=== PATIENT | female | born 1950 | race Caucasian/White ===

== ENCOUNTER → 2017-08-28 | Outpatient (CLI) | payer MEDICARE, OTHER ==
--- NOTE | 2017-08-28 13:10 | Diagnostic Imaging Report ---
History: Low back pain, bilateral leg pain. Comparison studies: None Technique: Sagittal, coronal and axial T2 , sagittal T1 and IR, axial spin density oblique. Intravenous contrast: None Findings: Number of lumbar vertebral bodies:5 Alignment: Normal lordosis.No scoliosis. Soft tissues: No T2 hyperintense inflammatory changes. Paraspinal muscles: No signal abnormalities. No atrophy. Lower thoracic cord:Normal in signal and morphology. The tip of the conus is at L1-L2. Cauda equina: No masses. No arachnoiditis. Vertebrae: Normal in height and signal intensity. No compression fractures, infection or neoplasm. Degenerative changes: Mild disc degeneration of the lower thoracic spine Modic type II changes at T10-T11 anteriorly. L1-L2: Disc degeneration with loss of T2 signal. Patent canal and foramina. L2-L3: Disc degeneration with loss of T2 signal. Patent canal and foramina. L3-L4: Disc degeneration with loss of T2 signal. Mild diffuse disc bulge, mild facet hypertrophy results in no significant canal stenosis or foraminal narrowing. L4-L5: Disc degeneration with loss of T2 signal. Diffuse disc bulge and small central area fissure and mild bilateral facet hypertrophy results in no significant canal stenosis or foraminal narrowing. L5-S1: Disc degeneration with loss of T2 signal. Mild diffuse disc bulge and mild facet hypertrophy results in no significant canal stenosis or foraminal narrowing. Additional findings: None IMPRESSION: Mild degenerative changes of the lumbar spine without significant canal stenosis or foraminal narrowing. Mild facet arthrosis at the lower lumbar spine. Signed by: DR Marciano Patel M.D. on 08/28/2017 1:06 PM
== END ==
LOC: MRI 10:01
PROVIDERS: ATTEND Family Medicine
DX: M54.16 Radiculopathy, lumbar region (principal)
CPT/HCPCS: 72148

== ENCOUNTER → 2017-11-16 | Outpatient (CLI) | payer MEDICARE, OTHER ==
--- NOTE | 2017-11-17 08:51 | Diagnostic Imaging Report ---
TECHNIQUE: Magnetic resonance imaging of the RIGHT KNEE was performed WITHOUT injected contrast. HISTORY: Pain, pain behind right knee, "run down my leg to my foot" COMPARISON: None available. FINDINGS: LIGAMENTS AND TENDONS: ACL: Prominent intrasubstance degeneration. PCL: Intact Collateral ligaments: Intact Iliotibial band: Unremarkable Popliteal tendon: Intact Extensor mechanism: Intact JOINT: Menisci: Medial: Complex tearing and attenuation of the posterior horn and adjacent body results in peripheral extrusion of the remaining body. Lateral: Intrasubstance delamination of the anterior horn, extending from the tibial foot print with the adjacent anterior cruciate ligament. Articular Cartilage: Medial Compartment: Full-thickness erosions of the weightbearing cartilage. Lateral Compartment: Superficial erosion and fissuring of the weightbearing cartilage. Patellofemoral Compartment: Diffuse intermediate to high-grade erosions. Joint Fluid: Small to moderate nonspecific joint effusion and synovitis. BONES: No focal or infiltrative bone marrow replacing abnormality. No acute fracture. Small medial compartment marginal osteophytes with adjacent mild reactive subchondral bone marrow edema.. SOFT TISSUES: Otherwise, unremarkable. IMPRESSION: 1. Medial compartment predominant tricompartmental degenerative changes, including degenerative tearing of the medial meniscus and degenerative delamination of the anterior horn of the lateral meniscus. 2. Reactive synovitis and associated small to moderate joint effusion. Signed by: Dr. Getachew Barnett D.O., M.M.M. on 11/17/2017 7:37 AM
== END ==
LOC: MRI 15:36
PROVIDERS: ATTEND Family Medicine
DX: M25.561 Pain in right knee (principal)

== ENCOUNTER → 2017-12-05 | Day surgery (SDC) | payer MEDICARE, OTHER ==
[2017-12-01 12:13] LABS: BASOPHILS % 0.5 % (0.0-1.0); EOSINOPHILS # (AUTO) 0.1 (0.0-0.4); EOSINOPHILS % 0.9 % (0.0-6.0); HEMATOCRIT 41.2 % (34.2-44.1); HEMOGLOBIN 13.6 g/dL (12.0-16.0); LYMPHOCYTES # (AUTO) 2.1 (1.0-3.2); MEAN CORPUSCULAR HEMOGLOBIN 29.4 pg (28-32); MEAN CORPUSCULAR VOLUME 89.2 fL (81-99); MONOCYTES # (AUTO) 0.4 (0.2-0.8); MONOCYTES % 6.9 % (4.4-11.3); NEUTROPHILS # (AUTO) 2.9 (2.1-6.9); NEUTROPHILS % 53.3 % (38.7-80.0); PLATELET COUNT 233 x10e3/uL (140-360); RED BLOOD COUNT 4.62 x10e6/uL (3.6-5.1); RED CELL DISTRIBUTION WIDTH 14.1 % (11.7-14.4)
--- NOTE | 2017-12-01 12:33 | Diagnostic Imaging Report ---
EXAMINATION: CHEST 2 VIEWS INDICATION: Preop COMPARISON: Chest radiograph 08/09/2016. FINDINGS: TUBES and LINES: None. LUNGS: Lungs are well inflated. Lungs are clear. There is no evidence of pneumonia or pulmonary edema. PLEURA: No pleural effusion or pneumothorax. HEART AND MEDIASTINUM: The cardiomediastinal silhouette is unremarkable. There are atherosclerotic calcifications within the aorta. BONES AND SOFT TISSUES: No acute osseous lesion. Soft tissues are unremarkable. UPPER ABDOMEN: No free air under the diaphragm. IMPRESSION: No acute thoracic abnormality. Signed by: Dr. Sudha Bowen MD on 12/01/2017 12:30 PM
[2017-12-01 12:44] LABS: ANION GAP 15.2 mmol/L (8-16); BLOOD UREA NITROGEN 24 mg/dL (7-26); BUN/CREATININE RATIO 30 (6-25); CARBON DIOXIDE 27 mmol/L (22-29); CHLORIDE 99 mmol/L (98-107); EST GLOMERULAR FILTRATION RATE > 60 ML/MIN (60-); GLUCOSE 91 mg/dL (74-118); POTASSIUM 3.2 mmol/L (3.5-5.1); SODIUM 138 mmol/L (136-145)
[~2017-12-05] MED LIST: AMLODIPINE BESY10 MG PO; CEFAZOLIN SOD 1 GM VIAL ONE; CRESTOR10 MG PO; DEXAMETHASONE SOD PHOS INJ 4 MG/ML VIAL ONE; DOXAZOSIN MESYLA2 MG PO; FENTANYL CITRATE/PF 100MCG/2 ML INJ ONE; KETOROLAC TROMETHAMINE 30 MG/ML VIAL ONE; LEVOTHYROXINE112 MCG PO; LIDOCAINE HCL 2% LOCAL INJ 5 ML SDV VIAL INJ ONE; LOSARTAN-HCTZ1 EAC1 PO; MIDAZOLAM HCL 2 MG/2 ML VIAL ONE; MIRAPEX0.25 MG PO; MORPHINE SULFATE 2 MG/ML SYR ONE; ONDANSETRON HCL INJ 2 MG/ML VIAL ONE; PHENTERMINE HCL15 MG PO; PROPOFOL IV EMULSION 10 MG/ML 20 ML VIAL ONE; SEVOFLURANE INHAL SOLN 250 ML PEN BTL ONE; VENLAFAXINE HCL75 MG PO
[2017-12-05 09:36] LABS: ANION GAP 14.4 mmol/L (8-16); BLOOD UREA NITROGEN 14 mg/dL (7-26); BUN/CREATININE RATIO 18 (6-25); CALCIUM 10.8 mg/dL (8.4-10.2); CARBON DIOXIDE 26 mmol/L (22-29); CHLORIDE 102 mmol/L (98-107); CREATININE, SERUM 0.76 mg/dL (0.57-1.11); EST GLOMERULAR FILTRATION RATE > 60 ML/MIN (60-); GLUCOSE 104 mg/dL (74-118); POTASSIUM 3.4 mmol/L (3.5-5.1); SODIUM 139 mmol/L (136-145)
--- NOTE | 2017-12-05 12:37 | Operative Report ---
DATE OF PROCEDURE: December 05, 2017 RAILWAY ENGINEER: Robin Rae PA-C The patient was brought to the operating room for induction of anesthesia. Throughout this case, my PA's assistance was necessary for retraction of soft tissue and positioning of the extremity. This allows for efficient and technically successful execution of the operation and is considered medically necessary. PREOPERATIVE DIAGNOSIS: Right knee degenerative medial meniscal tear. POSTOPERATIVE DIAGNOSES: Right knee degenerative medial meniscal tear plus lateral meniscal tear and chondroplasty of the trochlear groove and medial femoral condyle. PROCEDURE: Right knee arthroscopy, partial medial meniscectomy, partial lateral meniscectomy, chondroplasty of the trochlear groove and medial femoral condyle. INDICATIONS: The patient is a 67-year-old lady who has mechanical symptoms in her right knee. She has underlying arthritis. The findings and options have been extensively discussed. The patient states she is not ready to proceed with a knee replacement. She would like to proceed with arthroscopy. I have stressed the importance of realistic expectations with this type of procedure with underlying arthritis. She states she understands and wishes to proceed. DESCRIPTION OF PROCEDURE: The patient was brought to the operating room and placed under general anesthetic. Her right lower extremity was prepped and draped in a sterile manner. A well-padded tourniquet was inflated to 300 mmHg. A preoperative time out was performed. Standard arthroscopy portals were established. The knee was insufflated with sterile saline and systematically inspected. As expected, there was significant synovitis in the suprapatellar pouch. There was grade-3 chondromalacia of the patellofemoral groove. This was debrided back to a stable margin using a mechanical shaver. The medial compartment was inspected and probed. There was a degenerative tear of the posterior horn of the medial meniscus. There were grade-2 to grade-3 changes of chondromalacia in the medial femoral condyle. Both of these areas were gently debrided using a mechanical shaver. Before and after photographs were taken. The large posterior horn tear of the medial meniscus was debrided back to a stable margin. The cruciate ligaments were intact. The lateral compartment was inspected. There was fairly extensive fraying of the free edge of the lateral meniscus. This was debrided back to a stable margin using a mechanical shaver. The gutters were inspected. There were noted to be medial osteophytes. The knee was thoroughly further irrigated. The arthroscopic instruments were removed. The portal incisions were closed with nylon stitches. A sterile bandage was applied. She was extubated and transported to the recovery room in stable condition. Job#: [id number]
[2017-12-05 12:54] VITALS: BP 136/79
== END | disposition home or self-care (01) ==
LOC: OR 08:25
PROVIDERS: ATTEND Specialist
DX: S83.231A Complex tear of medial meniscus, current injury, right knee, initial encounter (principal); S83.281A Other tear of lateral meniscus, current injury, right knee, initial encounter; M94.261 Chondromalacia, right knee; M65.861 Other synovitis and tenosynovitis, right lower leg; I10 Essential (primary) hypertension; E03.9 Hypothyroidism, unspecified; G47.33 Obstructive sleep apnea (adult) (pediatric); E78.5 Hyperlipidemia, unspecified; X58.XXXA Exposure to other specified factors, initial encounter; Z01.810 Encounter for preprocedural cardiovascular examination; Z01.812 Encounter for preprocedural laboratory examination; Z01.818 Encounter for other preprocedural examination; Z68.39 Body mass index [BMI] 39.0-39.9, adult
CPT/HCPCS: 29880; 36415 ×2; 71046; 80048 ×2; 85025; 93005; J0690; J1100; J1885; J2001; J2250; J2270; J2405

== ENCOUNTER 2018-03-14 14:49 | Emergency (ER) | payer MEDICARE, OTHER ==
[~2018-03-14] VITALS: Ht 160 cm; Wt 85.7 kg
[~2018-03-14 14:49] MED LIST changes: -CEFAZOLIN SOD 1 GM VIAL ONE; -DEXAMETHASONE SOD PHOS INJ 4 MG/ML VIAL ONE; -FENTANYL CITRATE/PF 100MCG/2 ML INJ ONE; -KETOROLAC TROMETHAMINE 30 MG/ML VIAL ONE; -LIDOCAINE HCL 2% LOCAL INJ 5 ML SDV VIAL INJ ONE; -MIDAZOLAM HCL 2 MG/2 ML VIAL ONE; -MORPHINE SULFATE 2 MG/ML SYR ONE; -ONDANSETRON HCL INJ 2 MG/ML VIAL ONE; -PROPOFOL IV EMULSION 10 MG/ML 20 ML VIAL ONE; -SEVOFLURANE INHAL SOLN 250 ML PEN BTL ONE
--- NOTE | 2018-03-14 16:16 | Diagnostic Imaging Report ---
Exam: Left wrist Series. History: Injury to left wrist, status post fall yesterday Comparison: None. Findings: 3 views of the left wrist. There is mildly decreased bone mineralization. Acute, mildly displaced fracture through the neck of the scaphoid bone. Other bony structures are intact, without acute, displaced fracture. The ulnar styloid process is not visualized, however, no bony fragments are identified. Carpal bones remain aligned with the radius. Mild degenerative changes in the radiocarpal joint. No abnormal soft tissue calcification or mass. Mild soft tissue swelling tissue swelling around the wrist. Impression: 1. Acute, mildly displaced fracture through the neck of the scaphoid bone. Signed by: Dr. Aubrey Cronin M.D. on 03/14/2018 4:13 PM
== END 2018-03-14 16:47 | disposition home or self-care (01) ==
LOC: FSED 14:49
DX: S62.022A Displaced fracture of middle third of navicular [scaphoid] bone of left wrist, initial encounter for closed fracture (principal); W19.XXXA Unspecified fall, initial encounter; Y92.009 Unspecified place in unspecified non-institutional (private) residence as the place of occurrence of the external cause; I10 Essential (primary) hypertension; E03.9 Hypothyroidism, unspecified; E78.5 Hyperlipidemia, unspecified
CPT/HCPCS: 99283

== ENCOUNTER 2018-10-31 08:48 | Emergency (ER) | payer MEDICARE, OTHER ==
[~2018-10-31] VITALS: Ht 160 cm; Wt 99.8 kg
--- OUTSIDE RECORDS SUMMARY | 2018-10-31 08:51 | XMS REPORT | Encounter Summary ---
Author Organization Unknown Address [address] [place] [address] Phone [phone] Reason for Visit Medical Complaint Instructions 1. Upper respiratory infection rapid flu (A+B) upper respiratory infection (cold): care instructions benzonatate 200 mg capsule fluticasone propionate 50 mcg/actuation nasal spray,suspension 2. Sore throat symptom rapid strep group A, throat sore throat: care instructions Lidocaine Viscous 2 % mucosal solution 3. History of hypertension high blood pressure: care instructions 4. Body mass index 30+ - obesity body mass index: care instructions learning about healthy weight 5. Immunization advised shingles vaccine: what you need to know pneumococcal conjugate vaccine (pcv13): what you need to know Discussion Note: None recorded. Plan of Care Patient Instructions An upper respiratory infection, or URI, is an infection of the nose, sinuses, or throat. URIs are spread by coughs, sneezes, and direct contact. The common cold is the most frequent kind of URI. The flu and sinus infections are other kinds of URIs. Almost all URIs are caused by viruses. Antibiotics won't cure them. But you can treat most infections with home care. This may include drinking lots of fluids and taking ibqu-wry-ynedlnh pain medicine. You will probably feel better in 4 to 10 days. The doctor has checked you carefully, but problems can develop later. If you notice any problems or new symptoms, get medical treatment right away. Follow-up care is a maria part of your treatment and safety. Be sure to make and go to all appointments, and call your doctor if you are having problems. It's also a good idea to know your test results and keep a list of the medicines you take. How can you care for yourself at home? To prevent dehydration, drink plenty of fluids, enough so that your urine is light yellow or clear like water. Choose water and other caffeine-free clear liquids until you feel better. If you have kidney, heart, or liver disease and have to limit fluids, talk with your doctor before you increase the amount of fluids you drink. Take an kbon-kzx-iiuqpsv pain medicine, such as acetaminophen (Tylenol), ibuprofen (Advil, Motrin), or naproxen (Aleve). Read and follow all instructions on the label. Before you use cough and cold medicines, check the label. These medicines may not be safe for young children or for people with certain health problems. Be careful when taking tduf-aou-ypabhpb cold or flu medicines and Tylenol at the same time. Many of these medicines have acetaminophen, which is Tylenol. Read the labels to make sure that you are not taking more than the recommended dose. Too much acetaminophen (Tylenol) can be harmful. Get plenty of rest. Do not smoke or allow others to smoke around you. If you need help quitting, talk to your doctor about stop-smoking programs and medicines. These can increase your chances of quitting for good. When should you call for help? Call 911 anytime you think you may need emergency care. For example, call if: You have severe trouble breathing. Call your doctor now or seek immediate medical care if: You seem to be getting much sicker. You have new or worse trouble breathing. You have a new or higher fever. You have a new rash. Watch closely for changes in your health, and be sure to contact your doctor if: You have a new symptom, such as a sore throat, an earache, or sinus pain. You cough more deeply or more often, especially if you notice more mucus or a change in the color of your mucus. You do not get better as expected. Reminders Provider Appointments None recorded. Lab Rapid Flu (A+B) 10/06/2018 [facility] Rapid Strep Group a, Throat 10/06/2018 [facility] Referral None recorded. Procedures None recorded. Surgeries None recorded. Imaging None recorded. Medications Name Start Date alendronate 70 mg tablet alprazolam 0.25 mg tablet amlodipine 5 mg tablet Avapro benzonatate 200 mg capsule Take 1 capsule 3 times a day by oral route as needed for cough for 10 days. cephalexin 500 mg capsule citalopram clonazepam 0.5 mg tablet clotrimazole-betamethasone 1 %-0.05 % topical cream doxazosin 4 mg tablet fenofibrate 160 mg tablet fluticasone propionate 50 mcg/actuation nasal spray,suspension [place] 1 spray every day by intranasal route. ibuprofen 800 mg tablet TK 1 T PO Q 8 H WC levothyroxine levothyroxine 100 mcg tablet TK 1 T PO QD IN THE MORNING OES levothyroxine 112 mcg tablet levothyroxine 125 mcg tablet TK 1 T PO QAM OES Lidocaine Viscous 2 % mucosal solution Take 15 mL every 3 hours by oral route. losartan 100 mg-hydrochlorothiazide 25 mg tablet phentermine 30 mg capsule TK 1 C PO QD pramipexole 0.125 mg tablet venlafaxine ER 37.5 mg capsule,extended release 24 hr Medications Administered None recorded. Vitals Height Weight BMI Blood Pressure 5 ft 3 in 197 lbs 34.9 kg/m2 (1) 130/80 mm[Hg] (2) 136/82 mm[Hg] Lab Results Date Name Specimen Result Interpretation Description Value Range Status Address Rapid Strep Group a, Throat Result negative [facility]: [address] [place] [address] Swab Location Left and Right tonsillar pillars [facility]: [address] [place] [address] Rapid Flu (A+B) Influenza a negative [facility]: [address] [place] [address] Influenza B negative [facility]: [address] [place] [address] Allergies Code Code System Name Reaction Severity Status Onset NKDA Problems Name Status Onset Date Source Hypothyroidism Active 10/06/2018 Hyperlipidemia Active 10/06/2018 Hypertensive Disorder Active 10/06/2018 Procedures Date Name Performed by Delivery Information not available Vaccine List Vaccine Type Tdap 02/18/2016 Social History Smoking Status Never Smoker Past Encounters 10/06/2018 Upper Respiratory Infection; Sore Throat Symptom; History of Hypertension; Body Mass Index 30+ - Obesity; Immunization Advised [facility]: [address] [place] [address], Ph. History of Present Illness [id number]-Scbawpu Reported By: Patient HPI: Location: head/sinuses, throat, chest. Quality: productive cough, sore throat, nasal/sinus congestion. Duration: 2days. Severity: moderate. Context: no sick contacts, non-smoker, foreign travel. Associated Symptoms: no sputum production, no shortness of breath, no wheezing, no change in number of pillows needed to sleep at night, no sweats, no significant weight gain, no significant weight loss, no vomiting, no diarrhea, no rash, no nausea, no fever, no muscle aches, no headache, morning cough, sore throat; nasal congestion Review of Systems:ROS as noted in the HPI Review of Systems Basic Reported By: Patient Physical Exam Adult Basic, Adult Female Complete Reported By: Patient Constitutional: General Appearance: obese. Level of Distress: NAD. Ambulation: ambulating normally Psychiatric: Mental Status: active and alert. Orientation: to time, to place, to person Cos-Txay-Gfauf-Throat: Ears: no lesions on external ear, no outer ear tenderness, EACs clear, TMs clear. Hearing: no hearing loss. Nose: no lesions on external nose, nares patent, no septal deviation, nasal passages clear, no sinus tenderness, post nasal drip. Lips, Teeth, and Gums: no mouth or lip ulcers, no bleeding gums, normal dentition. Oropharynx: moist mucous membranes, no erythema, no exudates, tonsils not enlarged Lungs: Respiratory effort: no dyspnea, no tachypnea, no use of accessory muscles, no intercostal retractions. Auscultation: breath sounds normal Cardiovascular: Heart Auscultation: RRR, no murmurs
--- OUTSIDE RECORDS SUMMARY | 2018-10-31 08:51 | XMS REPORT | Continuity of Care Document ---
Author Author [facility] Address Unknown Phone Unavailable Care Team Providers Care Papeterie Table Assembler Name Role Phone Grows Up Information Exchange Unavailable Unavailable Problems Problem Status Onset Date Classification Date Reported Comments Source Immunization advised 10/06/2018 Diagnosis 10/06/2018 [facility] Body mass index 30+ - obesity 10/06/2018 Diagnosis 10/06/2018 [facility] History of hypertension 10/06/2018 Diagnosis 10/06/2018 [facility] Sore throat symptom 10/06/2018 Diagnosis 10/06/2018 [facility] Upper respiratory infection 10/06/2018 Diagnosis 10/06/2018 [facility] Hypothyroidism 10/06/2018 Problem 10/06/2018 [facility] Hyperlipidemia 10/06/2018 Problem 10/06/2018 [facility] Hypertensive Disorder 10/06/2018 Problem 10/06/2018 [facility] Medications Medication Details Route Status Patient Instructions Ordering Provider Order Date Source Alendronic acid 70 MG Oral Tablet alendronate 70 mg tablet Active [facility] Alprazolam 0.25 MG Oral Tablet alprazolam 0.25 mg tablet Active [facility] Amlodipine 5 MG Oral Tablet amlodipine 5 mg tablet Active [facility] Avapro Avapro Active [facility] benzonatate 200 MG Oral Capsule benzonatate 200 mg capsule Take 1 capsule 3 times a day by oral route as needed for cough for 10 days. Active [facility] Cephalexin 500 MG Oral Capsule cephalexin 500 mg capsule Active [facility] Celexa citalopram Active [facility] Clonazepam 0.5 MG Oral Tablet clonazepam 0.5 mg tablet Active [facility] Betamethasone 0.5 MG/ML / Clotrimazole 10 MG/ML Topical Cream clotrimazole-betamethasone 1 %-0.05 % topical cream Active [facility] Doxazosin 4 MG Oral Tablet doxazosin 4 mg tablet Active [facility] Fenofibrate 160 MG Oral Tablet fenofibrate 160 mg tablet Active [facility] Fluticasone propionate 0.05 MG/ACTUAT Metered Dose Nasal [place] fluticasone propionate 50 mcg/actuation nasal spray,suspension [place] 1 spray every day by intranasal route. Active [facility] Ibuprofen 800 MG Oral Tablet ibuprofen 800 mg tablet TK 1 T PO Q 8 H WC Active [facility] levothyroxine levothyroxine Active [facility] Levothyroxine Sodium 0.1 MG Oral Tablet levothyroxine 100 mcg tablet TK 1 T PO QD IN THE MORNING OES Active [facility] Levothyroxine Sodium 0.112 MG Oral Tablet levothyroxine 112 mcg tablet Active [facility] Levothyroxine Sodium 0.125 MG Oral Tablet levothyroxine 125 mcg tablet TK 1 T PO QAM OES Active [facility] Lidocaine Hydrochloride 20 MG/ML Mucous Membrane Topical Solution Lidocaine Viscous 2 % mucosal solution Take 15 mL every 3 hours by oral route. Active [facility] Hydrochlorothiazide 25 MG / Losartan Potassium 100 MG Oral Tablet losartan 100 mg-hydrochlorothiazide 25 mg tablet Active [facility] Phentermine Hydrochloride 30 MG Oral Capsule phentermine 30 mg capsule TK 1 C PO QD Active [facility] Pramipexole dihydrochloride 0.125 MG Oral Tablet pramipexole 0.125 mg tablet Active [facility] 24 HR venlafaxine 37.5 MG Extended Release Oral Capsule venlafaxine ER 37.5 mg capsule,extended release 24 hr Active [facility] Amlodipine Besylate 10 Mg Tablet Bedtime Active [facility] Doxazosin Mesylate 2 Mg Tablet Daily Active [facility] Levothyroxine Sodium 112 Mcg Tablet Bedtime Active [facility] Losartan/Hydrochlorothiazide (Losartan-Hctz 100-25 Mg Tab) 1 Each Tablet Bedtime Active [facility] Phentermine Hcl 15 Mg Capsule Daily Active [facility] Pramipexole Di-Hcl (Mirapex) 0.25 Mg Tablet Daily Active [facility] Rosuvastatin Calcium (Crestor) 10 Mg Tab Daily Active THERAPEUTICALLY SUBSTITUTED WITH SIMVASTATIN 40MG [facility] Venlafaxine Hcl 75 Mg Tab Twice A Day Active [facility] Allergies, Adverse Reactions, Alerts No Known Medication Allergies Immunizations Immunization Date Given Site Status Last Updated Comments Source Tdap 02/18/2016 completed [facility] Results Order Name Results Value Reference Range Date Interpretation Comments Source RESULT negative 10/06/2018 [facility] SWAB LOCATION Left and Right tonsillar pillars 10/06/2018 [facility] Influenza A negative 10/06/2018 [facility] Influenza B negative 10/06/2018 [facility] Serum or plasma sodium measurement (moles/volume) 139 136 - 145 12/05/2017 [facility] Serum or plasma potassium measurement (moles/volume) 3.4 3.5 - 5.1 12/05/2017 [facility] Serum or plasma chloride measurement (moles/volume) 102 98 - 107 12/05/2017 [facility] Serum or plasma carbon dioxide, total measurement (moles/volume) 26 22 - 29 12/05/2017 [facility] Serum or plasma anion gap 14.4 8 - 16 12/05/2017 [facility] Serum or plasma urea nitrogen measurement (mass/volume) 14 7 - 26 12/05/2017 [facility] Serum or plasma creatinine measurement (mass/volume) 0.76 0.57 - 1.11 12/05/2017 [facility] Serum or plasma urea nitrogen/creatinine mass ratio 18 6 - 25 12/05/2017 [facility] Estimated glomerular filtration rate (GFR) determination > 60 60 12/05/2017 [facility] Glucose measurement 104 74 - 118 12/05/2017 [facility] Serum or plasma calcium measurement (mass/volume) 10.8 8.4 - 10.2 12/05/2017 [facility] Blood leukocytes automated count (number/volume) 5.52 4.8 - 10.8 12/01/2017 [facility] Blood erythrocytes automated count (number/volume) 4.62 3.6 - 5.1 12/01/2017 [facility] Blood hemoglobin measurement (moles/volume) 13.6 12.0 - 16.0 12/01/2017 [facility] Automated blood hematocrit (volume fraction) 41.2 34.2 - 44.1 12/01/2017 [facility] Automated erythrocyte mean corpuscular volume 89.2 81 - 99 12/01/2017 [facility] Automated erythrocyte mean corpuscular hemoglobin (mass per erythrocyte) 29.4 28 - 32 12/01/2017 [facility] Automated erythrocyte mean corpuscular hemoglobin concentration measurement (mass/volume) 33.0 31 - 35 12/01/2017 [facility] RDW BldCo-Rto 14.1 11.7 - 14.4 12/01/2017 [facility] Automated blood platelet count (count/volume) 233 140 - 360 12/01/2017 [facility] Automated blood segmented neutrophil count as percentage of total leukocytes 53.3 38.7 - 80.0 12/01/2017 [facility] Automated blood lymphocyte count as percentage ot total leukocytes 38.0 18.0 - 39.1 12/01/2017 [facility] Automated blood monocyte count as percentage of total leukocytes 6.9 4.4 - 11.3 12/01/2017 [facility] Automated blood eosinophil count as percentage of total leukocytes 0.9 0.0 - 6.0 12/01/2017 [facility] Automated blood basophil count as percentage of total leukocytes 0.5 0.0 - 1.0 12/01/2017 [facility] IM GRANULOCYTES % 0.4 0.0 - 1.0 12/01/2017 [facility] Automated blood neutrophil count 2.9 2.1 - 6.9 12/01/2017 [facility] Blood lymphocytes count (number/volume) 2.1 1.0 - 3.2 12/01/2017 [facility] Blood monocytes automated count (number/volume) 0.4 0.2 - 0.8 12/01/2017 [facility] Automated blood eosinophil count 0.1 0.0 - 0.4 12/01/2017 [facility] Automated blood basophil count (count/volume) 0.0 0.0 - 0.1 12/01/2017 [facility] Absolute Immature Granulocyte (auto 0.02 0 - 0.1 12/01/2017 [facility] Pathology Reports No Data Provided for This Section Diagnostic Reports No Data Provided for This Section Consultation Notes No Data Provided for This Section Discharge Summaries No Data Provided for This Section History and Physicals No Data Provided for This Section Vital Signs Vital Sign Value Date Comments Source Diastolic (mm Hg) 82 10/06/2018 [facility] Height 63 10/06/2018 [facility] Systolic (mm Hg) 136 10/06/2018 [facility] Weight 197 10/06/2018 [facility] Encounters Location Location Details Encounter Type Encounter Number Reason For Visit Attending Provider ADM Date DC Date Status Source Registered Clinic [id number] RHONA SILVA MD 08/28/2017 [facility] Registered Clinic [id number] RHONA SILVA MD 11/16/2017 [facility] Registered Surgical Day Care [id number] ANA ONTIVEROS MD 12/05/2017 [facility] Departed Emergency Room [id number] JENNIFFER NEWTON MD 03/14/2018 03/14/2018 [facility] [place] - [facility] - [id number] HEIKE ArcherP-C: [address] [place] [address], Ph. [id number] Arian Borgeswe 10/06/2018 [facility] [place] [facility] [id number] [address] [place] [address], Ph. [id number] Arian Borgeswe 10/06/2018 [facility] Procedures Procedure Code Date Perfomer Comments Source KNEE ARTHROSCOPY/SURGERY [id number] 12/05/2017 [place] [facility] X-ray of chest, two views [id number] 12/01/2017 [place] [facility] MRI jnt of lwr extre w/o dye [id number] 11/16/2017 [facility] Magnetic resonance imaging of lumbar spine without contrast [id number] 08/28/2017 [facility] Delivery [id number] [facility] Assessment and Plan No Data Provided for This Section Plan of Care Plan of Care Date Source Discharge Date 03/14/18 4:47pm Disposition HOME, SELF-CARE Condition at Discharge Stable Instructions/Education Provided Fractures Forms Provided Work/School Excuse Prescriptions See Medication Section Referrals ANA ONTIVEROS MD Order Date: [facility] Address: [address] [place] [address] [address] [place] [address] Additional Instructions/Education Take medication as prescribed. -Tylenol #3 by mouth every 6 hours as needed for pain Qty#[address] while taking medication. Follow up with Dr. Ontiveros (Ortho) as soon as possible. Return to the ER if symptoms worsen or new symptoms develop. 03/14/2018 [facility] Social History Social History Date Source Smoking Status Start Date Stop Date Never Smoker 03/14/2018 [facility] Smoking Status Never Smoker 07/24/2010 [facility] Family History No Data Provided for This Section Advance Directives Order Name Results Value Date Source Advance Directives Advance Directives Directive Response Recorded Date/Time Does the patient have an advance directive? No 04/15/09 10:59am If yes, is advance directive on file with [facility]? No 04/15/09 10:59am If not on file with [facility] will patient provide a copy? No 08/09/16 4:14pm Do you have a Directive to Physician? No 03/14/18 3:41pm Do you have a Medical Power of Podiatrist Orthopedic? No 03/14/18 3:41pm Do you have an out of hospital Do Not Resuscitate Order? No 03/14/18 3:41pm Do you have any special needs we should be aware of? No 03/14/18 3:41pm Do you have a support person here with you today? Yes 03/14/18 3:41pm Did patient receive Notice of Privacy Practices? Yes 03/14/18 3:41pm Did patient receive patient rights and responsibilities? Yes 03/14/18 3:41pm 03/14/2018 [facility] Functional Status No Data Provided for This Section
--- OUTSIDE RECORDS SUMMARY | 2018-10-31 08:51 | XMS REPORT | Encounter Summary ---
Author Organization Unknown Address [address] [place] [address] Phone [phone] Reason for Visit Medical Complaint Instructions 1. [...] index: care instructions learning about healthy weight Discussion Note: None recorded. Plan of Care [...] include drinking lots of fluids and taking nvja-tfy-ormpliz pain medicine. You will probably feel better [...] amount of fluids you drink. Take an tjjd-crk-ezcsxpr pain medicine, such as acetaminophen (Tylenol), ibuprofen (Advil, Motrin), or naproxen (Aleve). Read and follow all instructions on the label. Before you use cough and cold medicines, check the label. These medicines may not be safe for young children or for people with certain health problems. Be careful when taking crmi-qdw-wvyjoak cold or flu medicines and Tylenol at [...] tablet fluticasone propionate 50 mcg/actuation nasal spray,suspension [place] 1 spray every day by intranasal route. [...] Group a, Throat Result negative [facility]: [address] [place] [address] Swab Location Left and Right tonsillar pillars [facility]: [address] [place] [address] Rapid Flu (A+B) Influenza a negative [facility]: [address] [place] [address] Influenza B negative [facility]: [address] [place] [address] Allergies Code Code System Name Reaction Severity [...] of Hypertension; Body Mass Index 30+ - Obesity Arian Beth [facility]: [address] [place] [address], Ph. History of Present Illness Diagc-Iychlxxmkd-Scxyjqw Reported By: Patient HPI: Location: head/sinuses, throat, [...] Orientation: to time, to place, to person Cfb-Sxep-Eqbtj-Throat: Ears: no lesions on external ear, no [...]
[2018-10-31] MEDS ORDERED: LIVALO2 MG PO (09:03)
[2018-10-31] MEDS ORDERED: ALENDRONATE SOD70 MG PO (09:03)
[2018-10-31] MEDS ORDERED: FENOPROFEN CAL600 MG PO (09:03)
[2018-10-31] MEDS ORDERED: DEXAMETHASONE SOD PHOS 10 MG/1 ML VIAL IM ONE (09:15)
[2018-10-31] MEDS ORDERED: ALBUTEROL/IPRATROPIUM 3 ML NEB ONE (09:15)
[2018-10-31] MEDS ORDERED: DEXAMETHASONE 10MG/ML PF INJ ONE (09:15)
[2018-10-31] MEDS ORDERED: ALBUTEROL/IPRATROPIUM 3 ML NEB NEB ONE (09:15)
--- NOTE | 2018-10-31 09:27 | Diagnostic Imaging Report ---
EXAMINATION: CXR 2 VIEW - HOPD INDICATION: Cough COMPARISON: None FINDINGS: LINES/TUBES:None LUNGS:The lungs are well-inflated. No focal consolidation or pulmonary edema. PLEURA:No pleural effusion or pneumothorax. MEDIASTINUM:The cardiomediastinal silhouette appears normal in size and shape. Atherosclerotic calcifications of the thoracic aorta. BONES/SOFT TISSUES:No acute osseous injury. ABDOMEN:No free air under the diaphragm. IMPRESSION: No focal pneumonia or pulmonary edema. Signed by: Alysia Urbano MD on 10/31/2018 9:24 AM
== END 2018-10-31 09:48 | disposition home or self-care (01) ==
LOC: FSED 08:48
DX: R06.00 Dyspnea, unspecified (principal); R05 Cough; J20.9 Acute bronchitis, unspecified; I10 Essential (primary) hypertension; E03.9 Hypothyroidism, unspecified; G25.81 Restless legs syndrome; E66.01 Morbid (severe) obesity due to excess calories
CPT/HCPCS: 71046; 99284; J1100

== ENCOUNTER → 2019-05-29 | Outpatient (CLI) | payer MEDICARE, OTHER ==
[~2019-05-29] MED LIST changes: +ALENDRONATE SOD70 MG PO; +FENOPROFEN CAL600 MG PO; +LIVALO2 MG PO
--- NOTE | 2019-05-29 17:04 | Diagnostic Imaging Report ---
EXAMINATION: CHEST 2 VIEWS INDICATION: Bronchitis COMPARISON: Chest radiograph of 12/01/2017 FINDINGS: LINES/TUBES:None LUNGS:The lungs are well-inflated. No focal consolidation or pulmonary edema. PLEURA:No pleural effusion or pneumothorax. MEDIASTINUM:The cardiomediastinal silhouette appears normal in size and shape. Atherosclerotic calcifications of the thoracic aorta. BONES/SOFT TISSUES:No acute osseous injury. ABDOMEN:No free air under the diaphragm. IMPRESSION: No focal pneumonia or pulmonary edema. Signed by: Alysia Urbano MD on 05/29/2019 5:02 PM
== END ==
LOC: RAD 16:04
PROVIDERS: ATTEND Family Medicine
DX: R05 Cough (principal); J40 Bronchitis, not specified as acute or chronic
CPT/HCPCS: 71046

== ENCOUNTER 2019-06-09 12:27 | Emergency (ER) | payer MEDICARE, OTHER ==
[~2019-06-09] VITALS: Ht 157.5 cm; Wt 98.0 kg
[2019-06-09] MEDS ORDERED: PROAIR HFA INH8.5 GM PO (13:10)
[2019-06-09] MEDS ORDERED: BROMFED DM COU118 ML PO (13:10)
[2019-06-09] MEDS ORDERED: CEFDINIR300 MG PO (13:10)
[2019-06-09] MEDS ORDERED: PREDNISONE20 MG PO (13:10)
[2019-06-09] MEDS ORDERED: ALBUTEROL2.5 MG/3 M NEB (13:10)
== END 2019-06-09 13:28 | disposition home or self-care (01) ==
LOC: FSED 12:27
DX: R05 Cough (principal); J20.9 Acute bronchitis, unspecified
CPT/HCPCS: 99282

== ENCOUNTER → 2020-01-07 | Outpatient (CLI) | payer MEDICARE, OTHER ==
[~2020-01-07] MED LIST changes: +ALBUTEROL2.5 MG/3 M NEB; +BROMFED DM COU118 ML PO; +CEFDINIR300 MG PO; +PREDNISONE20 MG PO; +PROAIR HFA INH8.5 GM PO
--- NOTE | 2020-01-07 08:39 | Diagnostic Imaging Report ---
TECHNIQUE: Frontal and lateral views of the chest. INDICATION: ^[id number] ^[id number] ^SOB COMPARISON: 05/29/19 IMPRESSION: Lines and hardware: None. Heart and mediastinum: Calcific aorta. Otherwise, unremarkable cardiomediastinal silhouette. Lungs and pleura: No focal airspace consolidation. Trace bilateral pleural effusions. No pneumothorax. Soft tissues and bones: No acute bony abnormality. Signed by: Ruslan Narvaez MD on 01/07/2020 8:36 AM
== END ==
LOC: RAD 07:35
PROVIDERS: ATTEND Family Medicine
DX: R06.02 Shortness of breath (principal)
CPT/HCPCS: 71046

== ENCOUNTER 2020-03-17 13:11 | Emergency (ER) | payer MEDICARE, OTHER ==
[~2020-03-17] VITALS: Ht 157.5 cm; Wt 103.9 kg
[2020-03-17 15:18] VITALS: BP 135/60
== END 2020-03-17 15:18 | disposition home or self-care (01) ==
LOC: FSED 13:30
DX: R05 Cough (principal); Z86.19 Personal history of other infectious and parasitic diseases; R07.89 Other chest pain; I10 Essential (primary) hypertension; G25.81 Restless legs syndrome
CPT/HCPCS: 71046; 80048; 80076; 82553; 84484; 85025; 93005; 99283

== ENCOUNTER → 2020-05-12 | Outpatient (CLI) | payer MEDICARE, OTHER | LOC: MRI 09:33 | PROVIDERS: ATTEND Family Medicine | DX: M54.5 Low back pain (principal) | CPT/HCPCS: 72148 ==

== ENCOUNTER → 2020-06-01 | Outpatient (CLI) | payer MEDICARE, OTHER | LOC: DX 10:01 | PROVIDERS: ATTEND Specialist | DX: M81.0 Age-related osteoporosis without current pathological fracture (principal) | CPT/HCPCS: 77080 ==

== ENCOUNTER → 2020-07-06 | Outpatient (CLI) | payer MEDICARE, OTHER | LOC: NM 07:31 | PROVIDERS: ATTEND Specialist | DX: E21.5 Disorder of parathyroid gland, unspecified (principal) | CPT/HCPCS: 78071; A9512 ==